=== PATIENT | female | born 1990 | race Two or more races ===

== ENCOUNTER 2023-04-16 06:03 | Emergency (ER) | payer BC, MEDICAID ==
[~2023-04-16] VITALS: Ht 149.9 cm; Wt 54.5 kg
[2023-04-16 06:15] VITALS: TEMP 97.3
[2023-04-16] MEDS ORDERED: MORPHINE SULFATE 4 MG/ML SYRINGE IVP ONE (06:45)
[2023-04-16] MEDS ORDERED: SODIUM CHLORIDE 0.9% 1,000 ML IV ONE (06:45)
[2023-04-16] MEDS ORDERED: ONDANSETRON HCL 4 MG/2 ML VIAL IVP ONE (06:45)
[2023-04-16 06:48] LABS: BASOPHILS % (AUTO) 1.1 % (0.0-2.0); EOSINOPHILS % (AUTO) 4.6 % (1.0-6.0); HEMATOCRIT 42.7 % (36-46); LYMPHOCYTES # (AUTO) 2.8 K/uL (1.0-4.8); LYMPHOCYTES % (AUTO) 30.3 % (22.0-44.0); MEAN CORPUSCULAR HEMOGLOBIN 30.6 pg (26.0-34.0); MEAN CORPUSCULAR HGB CONC 32.8 G/dL (31.0-37.0); MEAN CORPUSCULAR VOLUME 93 fL (80-100); MONOCYTES # (AUTO) 0.5 K/uL (0.1-1.0); MONOCYTES % (AUTO) 5.2 % (2.0-9.0); NEUTROPHILS # (AUTO) 5.4 K/uL (1.8-7.7); NEUTROPHILS % (AUTO) 58.8 % (40.0-70.0); PLATELET COUNT (AUTO) 446 K/uL (150-450); RED BLOOD CELL COUNT(AUTO) 4.58 MIL/uL (4.00-5.20); RED CELL DISTRIBUTION WIDTH 14.2 % (11.5-14.5); WHITE BLOOD COUNT (AUTO) 9.1 K/uL (4.5-11.0)
[2023-04-16 06:54] LABS: ANION GAP 13 mmol/L (8-16); CALCIUM, TOTAL 8.9 mg/dL (8.8-10.5); CARBON DIOXIDE 21 mmol/L (22-29); CHLORIDE 102 mmol/L (98-107); CREATININE 0.62 mg/dL (0.60-1.30); GLOMERULAR FILTR. RATE CALC > 60 mL/min (>60); GLUCOSE,RANDOM 102 mg/dL (70-110); POTASSIUM 3.6 mmol/L (3.5-5.1); SODIUM SERUM 136 mmol/L (136-145); UREA NITROGEN, BLOOD 8 mg/dL (7-18)
[2023-04-16 06:57] LABS: ALCOHOL, BLOOD (SERUM) < 3 mg/dL (0-10)
[2023-04-16 07:02] LABS: LACTIC ACID 1.2 mmol/L (0.4-2.0)
[2023-04-16 07:08] LABS: ALANINE AMINOTRANSFERASE 19 U/L (12-78); ALBUMIN 4.1 g/dL (3.4-5.0); ALKALINE PHOSPHATASE 44 U/L (46-116); ASPARTATE AMINOTRANSFERASE 19 U/L (15-37); BILIRUBIN,TOTAL 1.1 mg/dL (0.1-1.0); LIPASE 136 U/L (16-77); TOTAL PROTEIN, SERUM 7.8 g/dL (6.4-8.2)
[2023-04-16] MEDS ORDERED: MAG HYDROX/AL HYDROX/SIMETH ES 30 ML SUSPENSION UDCUP PO ONE (07:15)
[2023-04-16] MEDS ORDERED: OMEPRAZOLE 20 MG CAPSULE PO ONE (07:15)
[2023-04-16 09:00] VITALS: BP 113/71; PULSE 57; RESP 21
[2023-04-16] MEDS ORDERED: ACET-66 PO (09:15)
[2023-04-16] MEDS ORDERED: OMEP20 PO (09:15)
[2023-04-16] MEDS ORDERED: MAG30ORA11 PO (09:15)
[2023-04-16] MEDS ORDERED: ONDA-104 PO (09:15)
== END 2023-04-16 09:30 | disposition home or self-care (01) ==
LOC: EMS 06:12
DX: K29.70 Gastritis, unspecified, without bleeding (principal); R10.13 Epigastric pain
CPT/HCPCS: 80053; 82271; 83605; 83690; 85025; 36415; 76700; 99285; 96361; 96374; 96375; G0480; J2270; J2405; J7030

== ENCOUNTER 2024-02-21 18:41 | Emergency (ER) | payer BC, MEDICAID, OTHER ==
[~2024-02-21] VITALS: Ht 149.9 cm; Wt 50.0 kg
[~2024-02-21 18:41] MED LIST: ACET-66 PO; MAG30ORA11 PO; OMEP20 PO; ONDA-104 PO
[2024-02-21 19:02] VITALS: BP 130/75; PULSE 69; RESP 18; TEMP 97.6
[2024-02-21] MEDS ORDERED: SULF-261 PO (19:06)
[2024-02-21] MEDS ORDERED: CEPH-558 PO (19:06)
== END 2024-02-21 19:46 | disposition home or self-care (01) ==
LOC: EMS 18:41
DX: L02.31 Cutaneous abscess of buttock (principal)
CPT/HCPCS: 99282; Z7502